=== PATIENT | female | born 1940 | race Caucasian/White ===

== ENCOUNTER 2021-09-11 12:19 | Outpatient (REF) | payer MEDICARE, OTHER, SELFPAY ==
--- NOTE | ~2021-09-11 | MM_ITS ---
EXAMINATION: MM SCREENING DIGITAL BREAST TOMOSYNTHESIS, BILATERAL CLINICAL INFORMATION: Screening. Asymptomatic. The lifetime risk of breast cancer based on the Tyrer-Cuzick Model is 1%. COMPARISON: Outside mammography: 01/06/2016, 10/20/2013, 09/30/2012 ([facility]). TECHNIQUE: Digital breast tomosynthesis is performed in both the craniocaudal and mediolateral oblique views along with computer-aided detection (CAD). Synthesized 2D images are generated from the tomosynthesis. FINDINGS: The breasts are heterogeneously dense, which may obscure small masses (ACR BI-RADS breast composition Category c). There are no significant masses, abnormal calcifications, or other abnormalities. Breast tissue composition borders on average fibroglandular. Parenchymal pattern is similar to prior outside exams. No developing density or architectural abnormality. The axilla and skin contours are unremarkable. No significant changes from outside studies. MM/MM tomosynthesis screening BI IMPRESSION: No mammographic evidence of malignancy. ASSESSMENT: BI-RADS 1: Negative RECOMMENDATION: Routine annual mammography screening. This patient's information was entered into a reminder system with a target due date for their next mammogram.
== END 2021-09-11 12:20 | disposition home or self-care (01) ==
LOC: HO.MAMMO 12:19
PROVIDERS: PCP Internal Medicine; Visit Provider Internal Medicine
DX: Z12.31 Encounter for screening mammogram for malignant neoplasm of breast (principal)
CPT/HCPCS: 77063; 77067

== ENCOUNTER 2021-09-18 07:59 | Day surgery (SDC) | payer MEDICARE, OTHER, SELFPAY ==
[2021-09-12 14:17] VITALS: BMI 23.9
--- NOTE | 2021-09-12 17:11 | HP_ITS ---
DATE OF SERVICE: 09/18/2021 The patient is scheduled for cataract surgery on with Dr. Cornejo. Patient was seen today for preop assessment and previously had a history and physical on August 29 in the office. PAST MEDICAL HISTORY: Significant for hypertension, elevated lipids, diverticulosis, and osteoporosis. She had back surgery in 1981 and basal cell skin cancer removed from her forehead previously. FAMILY HISTORY: Parents are . She had 6 siblings, twins in infancy. One sister is , 3 survived. SOCIAL HISTORY: She is , has 3 children. Quit smoking over 45 years ago. REVIEW OF SYSTEMS: Weight is stable. No fevers or chills or sweats. No headaches or dizziness. No chest pains or palpitations. No peripheral edema. No shortness of breath, coughing, or wheezing. No abdominal pain or heartburn. No dysuria. Some arthritis in her hands. ALLERGIES: SHE DOES HAVE SEASONAL ALLERGIES. SHE LISTS SEVERAL MEDICATION ALLERGIES, WHICH INCLUDE NOVOCAIN, LIDOCAINE, SO SHE CANNOT HAVE LIDOCAINE INJECTION FOR THIS PROCEDURE. SHE IS ALLERGIC TO PENICILLIN, SULFA, DEMEROL, MORPHINE, AND TETANUS. MEDICATIONS: Her present medications are olmesartan 10 mg a day. PHYSICAL EXAMINATION: GENERAL: She is awake and alert, in no distress. VITAL SIGNS: Temperature is 97.8, pulse 91, respirations 12, pressure 136/82, 97% oxygen saturation on room air. Weight is 154, height is 5 feet 4 inches. Well-nourished, in no distress. HEENT: Pupils equal. TMs clear. Pharynx clear. NECK: Supple. No nodes, bruits, or masses. HEART: Sounds S1 and S2. Regular rate and rhythm. LUNGS: Clear. ABDOMEN: Soft and nontender with positive bowel sounds. No HSM. EXTREMITIES: No clubbing, cyanosis, or edema. 1+ pulses. NEUROLOGIC: Cranial nerves II through XII are intact. Hand grasps are equal. ASSESSMENT AND PLAN: She is medically stable for the proposed procedure. I will be available if there are any medical issues. Repeat blood pressure check, 130/80 today. 1. Preop, stable. 2. Hypertension, good control. 3. History of skin cancer, stable. 4. Elevated lipids, followed at home by her local physician. 5. Osteoporosis, on vitamin D. 6. Diverticulosis, not an active problem at this time. MD JEAN-PIERRE Arias/DOLLY / [phone]
--- NOTE | 2021-09-14 08:09 | MHC.SHP ---
Pre-Procedural Eval Section A Date of Service: 09/14/21 The patient is an INPATIENT: No Changes since office visit: No Cold of Flu in the past 2 weeks, No New Medical Problems, No Changes in Medication and No Patient answered all questions The History & Physical has been completed within 30 days and I have reviewed it.: Yes Section B Chief Complaint: Age-related nuclear cataract, left eye Allergies: Allergies Allergy/AdvReac Type Severity Reaction Status Date / Time lidocaine Allergy per H&P Verified 09/13/21 12:55 meperidine [From Demerol] Allergy Unknown Verified 09/13/21 12:50 morphine Allergy Unknown Verified 09/13/21 12:50 Penicillins Allergy Unknown Verified 09/13/21 12:50 procaine [From Novocain] Allergy Throat Verified 09/12/21 14:15 Swelling Sulfa (Sulfonamide Allergy Unknown Verified 09/13/21 12:50 Antibiotics) Tetanus Vaccines and Toxoid Allergy Unknown Verified 09/13/21 12:50 Plan Diagnosis/Plan: Unchanged I have reviewed the history and physical and performed a pertinent physical examination on my patient. No changes have occurred unless specified.
--- NOTE | 2021-09-15 09:30 | HO.ANESPROP2 ---
Documented by User: Gay Flores NP 09/15/21 09:34 HPI - Anesthesia Eval Consult details Narrative: 81yo F for Left Left Cataract Extraction IOL Insertion PCP cleared No previous cataract on record Allergy to procaine (throat swelling). Dr Cornejo and Dr Xie aware PMFSH Past Medical History Medical History (Updated 09/13/21 @ 12:54 by Meg Sousa, RN) Diverticulosis Elevated lipids History of skin cancer HTN (hypertension) Osteoporosis Seasonal allergies Surgical History Surgical History (Updated 09/12/21 @ 14:13 by Meg Sousa, RN) History of lumbar discectomy S/P excision of lipoma Social History Social History Household Members Other:: [employer] Are you a primary morning caregiver to a significant other at home: No Do you presently have visiting nurse or other home services: No Patient Tobacco Use Status: Never used Tobacco Second Hand Smoke Exposure: No Use of substances other than those prescribed or required for medical reasons: No Have you been hit, kicked, punched, or otherwise hurt by someone within the past year? If so, by whom?: No Are you DNR?: No Advance Directives: No Advance Directives Information Provided: Yes Advance Directives on File: No Recently lost weight without trying: No Eating poorly because of decreased appetite: No Nutrition Risks: No Nutritional Risk Patient : No Meds Allergies Allergy/AdvReac Type Severity Reaction Status Date / Time lidocaine Allergy per H&P Verified 09/13/21 12:55 meperidine [From Demerol] Allergy Unknown Verified 09/13/21 12:50 morphine Allergy Unknown Verified 09/13/21 12:50 Penicillins Allergy Unknown Verified 09/13/21 12:50 procaine [From Novocain] Allergy Throat Verified 09/12/21 14:15 Swelling Sulfa (Sulfonamide Allergy Unknown Verified 09/13/21 12:50 Antibiotics) Tetanus Vaccines and Toxoid Allergy Unknown Verified 09/13/21 12:50 Home Medications Medication Instructions Recorded Confirmed Last Taken Type olmesartan 20 mg tablet 10 mg PO DAILY 09/13/21 09/13/21 09/18/21 History Exam Exam Date and Time: September 15, 2021 0930 Height,Weight and Vital Signs: Height 5 ft 7 in Weight 69.4 kg Assessment and Plan Assessment Anesthesia Assessment: Chart Reviewed Documented by User: Barrett Xie MD 09/18/21 09:46 PMFSH Past Medical History Medical History (Updated 09/13/21 @ 12:54 by Meg Sousa RN) Diverticulosis Elevated lipids History of skin cancer HTN (hypertension) Osteoporosis Seasonal allergies Family History Family history of problems with anesthesia: No Surgical History Surgical History (Updated 09/12/21 @ 14:13 by Meg Sousa RN) History of lumbar discectomy S/P excision of lipoma History of Problems with Anesthesia: No Social History Social History Household Members Other:: [employer] Are you a primary morning caregiver to a significant other at home: No Do you presently have visiting nurse or other home services: No Patient Tobacco Use Status: Never used Tobacco Second Hand Smoke Exposure: No Use of substances other than those prescribed or required for medical reasons: No Have you been hit, kicked, punched, or otherwise hurt by someone within the past year? If so, by whom?: No Are you DNR?: No Advance Directives: No Advance Directives Information Provided: Yes Advance Directives on File: No Recently lost weight without trying: No Eating poorly because of decreased appetite: No Nutrition Risks: No Nutritional Risk Patient : No Meds Allergies Allergy/AdvReac Type Severity Reaction Status Date / Time lidocaine Allergy per H&P Verified 09/13/21 12:55 meperidine [From Demerol] Allergy Unknown Verified 09/13/21 12:50 morphine Allergy Unknown Verified 09/13/21 12:50 Penicillins Allergy Unknown Verified 09/13/21 12:50 procaine [From Novocain] Allergy Throat Verified 09/12/21 14:15 Swelling Sulfa (Sulfonamide Allergy Unknown Verified 09/13/21 12:50 Antibiotics) Tetanus Vaccines and Toxoid Allergy Unknown Verified 09/13/21 12:50 Home Medications Medication Instructions Recorded Confirmed Last Taken Type olmesartan 20 mg tablet 10 mg PO DAILY 09/13/21 09/13/21 09/18/21 History Exam Airway Mallampati Class: II TM Dist: >3cm Neck ROM: Full Loose/Missing/Broken Teeth: No Heart: rrr+s1s2 Lungs: cta b/l Assessment and Plan Assessment Anesthesia Assessment: Anesthesia Plan Discussed Final Anesthetic Review Family History of Problems with Anesthesia: No History of Problems with Anesthesia: No NPO: Yes ASA Class: III Final Preanesthetic Review: No Changes in Pt Med Stat, Meds/Allgs Chart Reviewed, Consent Obtained/Reviewed and Anes Risks/Benef Reviewed Patient Risk: Intermediate Procedure Risk: Low Assessment/Block/Sedation in SS: Assess/Block/Sedation-SS Anesthetic Plan Anesthetic Plan: MAC: and Agree w/ Assess. and Plan Disposition: Standard PACU
--- NOTE | 2021-09-18 08:59 | PC.NURSE ---
dr hodge aware pts allergies sts okay to give tetacaine pt has had in the office with no allergies
[2021-09-18 09:16] VITALS: BP 157/65; PULSE 78; RESP 18; TEMP 36.6; O2SAT 97
[2021-09-18] MEDS: Lactated Ringers 500 ML 50 ML IV (09:28)
[2021-09-18] MEDS: Tetracaine HCl/PF 0.5% Oph Sol 4 ML DROPS 1 DROP EYE-LEFT (09:29)
[2021-09-18] MEDS: Tropicamide 1 % Ophth Sol 3 ML BTL 1 DROP EYE-LEFT ×3 (09:29→09:31)
[2021-09-18] MEDS: Phenylephrine HCL 2.5% Oph SoL 2 ML BOTTLE 1 DROP EYE-LEFT ×3 (09:29→09:31)
--- NOTE | 2021-09-18 10:39 | HO.PNOPHT ---
Ophthalmology Procedure Procedure Date of Service: 09/18/21 Ophthalmology Viscoelastic: Healmark Duet Dual Pack Pro Ophthalmology Lenses: TECNIS [id number] (22.5) Procedure Notes: PREOPERATIVE DIAGNOSIS: Decreased visual acuity left eye secondary to cataract POSTOPERATIVE DIAGNOSIS: Same PROCEDURE: Left cataract extraction with intraocular lens insertion SURGEON: Juice Cornejo M.D. ANESTHESIA: Topical/MAC ESTIMATED BLOOD LOSS: None COMPLICATIONS: None After obtaining informed consent, the patient was brought to the operation room suite and placed in the supine position. After adequate sedation per anesthesia, topical drops of Tetracaine were given to the left eye. The eye was then prepped and draped in the usual sterile fashion. The operating room microscope was then positioned over the operative eye and a lid speculum placed. A paracentesis was created. Viscoelastic was then instilled into the anterior chamber. A three plane incision was then created temporally, utilizing a 2.85 mm keratome. Capsulotomy forceps were then utilized to create a circular tear capsulotomy. Hydrodissection and hydrodelineation were carried out until adequate mobilization of the nucleus occurred. Phacoemulsification was then utilized to remove the dense central nucleus followed by removal of the cortical material utilizing the automated aspiration irrigation unit. Viscoat elastic was instilled into the posterior capsular bag followed by placement of a posterior chamber intraocular lens without difficulty. The residual Viscoat elastic was then removed utilizing the automated IA machine. The wound was check and found to be watertight. The patient tolerated the procedure well and the lid speculum was removed. Intracameral injection of Vigamox 0.1 mL followed by a subtenon injection of Kenalog-40 0.2 mL were administered. The patient will be seen in the a.m.
[2021-09-18 11:01] VITALS: BP 171/85; PULSE 73; RESP 16; TEMP 37.1; O2SAT 96
== END 2021-09-18 11:26 | disposition home or self-care (01) ==
PROVIDERS: PCP Internal Medicine; Visit Provider Ophthalmology
PROC: (CPT 66985; principal; 2021-09-18 10:50)
DX: H25.12 Age-related nuclear cataract, left eye (principal); H35.3111 Nonexudative age-related macular degeneration, right eye, early dry stage; I10 Essential (primary) hypertension; Z79.899 Other long term (current) drug therapy; Z88.0 Allergy status to penicillin; Z88.2 Allergy status to sulfonamides; Z88.8 Allergy status to other drugs, medicaments and biological substances; Z87.891 Personal history of nicotine dependence
CPT/HCPCS: 66984; J2250; J3010; J3300; V2632

== ENCOUNTER 2021-09-22 14:24 | Outpatient (REF) | payer MEDICARE, OTHER, SELFPAY ==
--- NOTE | ~2021-09-22 | CT_ITS ---
EXAMINATION: CT HEAD WITHOUT CONTRAST CLINICAL INFORMATION: Facial numbness, hypertension and fatigue COMPARISON: None TECHNIQUE: Contiguous axial imaging was performed from the skull base to vertex without intravenous administration of contrast. This CT examination was performed using dose optimization techniques as appropriate, variously including the following: *Automated exposure control *Adjustment of mA and/or kV according to patient size (this includes techniques or standardized protocols for targeted exams where dose is matched to indication/reason for exam; i.e. extremities or head) *Use of iterative reconstruction technique DLP: 610 mGy-cm FINDINGS: There is no evidence of an extra-axial collection. There is no evidence of intra-axial or extra-axial hemorrhage. The ventricles and extra-axial CSF spaces are slightly prominent suggestive of mild generalized atrophy. There is mild nonspecific periventricular white matter disease. There is a left basial ganglia lacunar infarct. No mass or mass effect is seen. Review at bone windows is normal. Visualized paranasal sinuses, mastoid air cells and middle ears are clear. CT/CT head/brain wo con IMPRESSION: Left basal ganglia lacunar infarct. Mild generalized atrophy and nonspecific periventricular white matter disease.
== END 2021-09-22 14:25 | disposition home or self-care (01) ==
LOC: HO.CT 14:24
PROVIDERS: PCP Internal Medicine; Referring Provider Ophthalmology; Visit Provider Internal Medicine
DX: R29.810 Facial weakness (principal); R53.83 Other fatigue
CPT/HCPCS: 70450

== ENCOUNTER 2021-10-02 09:37 | Day surgery (SDC) | payer MEDICARE, OTHER, SELFPAY ==
[2021-09-12 14:21] VITALS: BMI 23.9
--- NOTE | 2021-09-28 08:41 | MHC.SHP ---
Pre-Procedural Eval Section A Date of Service: 09/28/21 The patient is an INPATIENT: No Changes since office visit: No Cold of Flu in the past 2 weeks, No New Medical Problems, No Changes in Medication and No Patient answered all questions The History & Physical has been completed within 30 days and I have reviewed it.: Yes Section B Chief Complaint: Age-related nuclear cataract, right eye Allergies: Allergies Allergy/AdvReac Type Severity Reaction Status Date / Time lidocaine Allergy per H&P Verified 09/13/21 12:55 meperidine [From Demerol] Allergy Unknown Verified 09/13/21 12:50 morphine Allergy Unknown Verified 09/13/21 12:50 Penicillins Allergy Unknown Verified 09/13/21 12:50 procaine [From Novocain] Allergy Throat Verified 09/12/21 14:15 Swelling Sulfa (Sulfonamide Allergy Unknown Verified 09/13/21 12:50 Antibiotics) Tetanus Vaccines and Toxoid Allergy Unknown Verified 09/13/21 12:50 Plan Diagnosis/Plan: Unchanged I have reviewed the history and physical and performed a pertinent physical examination on my patient. No changes have occurred unless specified.
--- NOTE | 2021-09-28 11:55 | P.CONAN_ITS ---
Documented by User: Gay Flores NP 09/28/21 11:56 HPI - Anesthesia Eval Consult details Narrative: 81yo F for Right Cataract Extraction IOL Insertion PCP cleared Left eye 09/19/21 with MAC: Midaz 0.5 PMFSH Past Medical History Medical History (Updated 09/13/21 @ 12:54 by Meg Sousa, RN) Diverticulosis Elevated lipids History of skin cancer HTN (hypertension) Osteoporosis Seasonal allergies Family History Family history of problems with anesthesia: No Surgical History Surgical History (Updated 09/12/21 @ 14:13 by Meg Sousa RN) History of lumbar discectomy S/P excision of lipoma History of Problems with Anesthesia: No Social History Social History Household Members Other:: [employer] Are you a primary healthcare network consultant to a significant other at home: No Do you presently have visiting nurse or other home services: No Patient Tobacco Use Status: Never used Tobacco Second Hand Smoke Exposure: No Meds Allergies Allergy/AdvReac Type Severity Reaction Status Date / Time lidocaine Allergy per H&P Verified 09/13/21 12:55 meperidine [From Demerol] Allergy Unknown Verified 09/13/21 12:50 morphine Allergy Unknown Verified 09/13/21 12:50 Penicillins Allergy Unknown Verified 09/13/21 12:50 procaine [From Novocain] Allergy Throat Verified 09/12/21 14:15 Swelling Sulfa (Sulfonamide Allergy Unknown Verified 09/13/21 12:50 Antibiotics) Tetanus Vaccines and Toxoid Allergy Unknown Verified 09/13/21 12:50 Home Medications Medication Instructions Recorded Confirmed Last Taken Type olmesartan 20 mg tablet 10 mg PO DAILY 09/13/21 09/13/21 09/18/21 History Exam Exam Date and Time: September 28, 2021 1155 Height,Weight and Vital Signs: Height 5 ft 7 in Weight 69.4 kg Assessment and Plan Assessment Anesthesia Assessment: Chart Reviewed Final Anesthetic Review Family History of Problems with Anesthesia: No History of Problems with Anesthesia: No Documented by User: Barrett Xie MD 10/02/21 08:31 [facility] Past Medical History Medical History (Updated 09/13/21 @ 12:54 by Meg Sousa, RN) Diverticulosis Elevated lipids History of skin cancer HTN (hypertension) Osteoporosis Seasonal allergies Surgical History Surgical History (Updated 09/12/21 @ 14:13 by Meg Sousa, RN) History of lumbar discectomy S/P excision of lipoma Social History Social History Household Members Other:: [employer] Are you a primary healthcare network consultant to a significant other at home: No Do you presently have visiting nurse or other home services: No Patient Tobacco Use Status: Never used Tobacco Second Hand Smoke Exposure: No Meds Allergies Allergy/AdvReac Type Severity Reaction Status Date / Time lidocaine Allergy per H&P Verified 09/13/21 12:55 meperidine [From Demerol] Allergy Unknown Verified 09/13/21 12:50 morphine Allergy Unknown Verified 09/13/21 12:50 Penicillins Allergy Unknown Verified 09/13/21 12:50 procaine [From Novocain] Allergy Throat Verified 09/12/21 14:15 Swelling Sulfa (Sulfonamide Allergy Unknown Verified 09/13/21 12:50 Antibiotics) Tetanus Vaccines and Toxoid Allergy Unknown Verified 09/13/21 12:50 Home Medications Medication Instructions Recorded Confirmed Last Taken Type olmesartan 20 mg tablet 10 mg PO DAILY 09/13/21 09/13/21 09/18/21 History Exam Airway Mallampati Class: II TM Dist: >3cm Neck ROM: Full Loose/Missing/Broken Teeth: No Heart: rrr+s1s2 Lungs: cta b/l Assessment and Plan Assessment Anesthesia Assessment: Anesthesia Plan Discussed Final Anesthetic Review NPO: Yes ASA Class: III Final Preanesthetic Review: No Changes in Pt Med Stat, Meds/Allgs Chart Rev iewed, Consent Obtained/Reviewed and Anes Risks/Benef Reviewed Patient Risk: Intermediate Procedure Risk: Low Assessment/Block/Sedation in SS: Assess/Block/Sedation-SS Anesthetic Plan Anesthetic Plan: MAC: and Agree w/ Assess. and Plan Disposition: Standard PACU
[2021-10-02 11:30] VITALS: BP 169/84; PULSE 69; RESP 16; TEMP 36.8; O2SAT 99
[2021-10-02] MEDS: Tetracaine HCl/PF 0.5% Oph Sol 4 ML DROPS 1 DROP EYE-RIGHT ×2 (11:36→11:54)
[2021-10-02] MEDS: Lactated Ringers 500 ML 50 ML IV (11:36)
[2021-10-02] MEDS: Tropicamide 1 % Ophth Sol 3 ML BTL 1 DROP EYE-RIGHT ×3 (11:41→11:54)
[2021-10-02] MEDS: Phenylephrine HCL 2.5% Oph SoL 2 ML BOTTLE 1 DROP EYE-RIGHT ×3 (11:50→11:57)
--- NOTE | 2021-10-02 12:37 | HO.PNOPHT ---
Ophthalmology Procedure Procedure Date of Service: 10/02/21 Ophthalmology Viscoelastic: Heal[employer] Duet Dual Pack Pro Ophthalmology Lenses: TECNIS [id number] (23.5) Procedure Notes: PREOPERATIVE DIAGNOSIS: Decreased visual acuity right eye secondary to cataract POSTOPERATIVE DIAGNOSIS: Same PROCEDURE: Right cataract extraction with intraocular lens insertion SURGEON: Juice Cornejo M.D. ANESTHESIA: Topical/MAC ESTIMATED BLOOD LOSS: None COMPLICATIONS: None After obtaining informed consent, the patient was brought to the operating room suite and placed in the supine position. After adequate sedation per anesthesia, topical drops of Tetracaine were given to the right eye. The eye was then prepped and draped in the usual sterile fashion. The operating room microscope was then positioned over the operative eye and a lid speculum placed. A paracentesis was created. Viscoelastic was then instilled into the anterior chamber. A three plane incision was then created temporally, utilizing a 2.85 mm keratome. Capsulotomy forceps were then utilized to create a circular tear capsulotomy. Hydrodissection and hydrodelineation were carried out until adequate mobilization of the nucleus occurred. Phacoemulsification was then utilized to remove the dense central nucleus followed by removal of the cortical material utilizing the automated aspiration irrigation unit. Viscoelastic was instilled into the posterior capsular bag followed by placement of a posterior chamber intraocular lens without difficulty. The residual Viscoelastic was then removed utilizing the automated IA machine. The wound was checked and found to be watertight. The patient tolerated the procedure well and the lid speculum was removed. Intracameral injection of Vigamox 0.1 mL followed by a subtenon injection of Kenalog-40 0.2 mL were administered. The patient will be seen in the a.m.
[2021-10-02 13:04] VITALS: BP 171/89; PULSE 70; RESP 18; TEMP 36.2; O2SAT 98
== END 2021-10-02 13:20 | disposition home or self-care (01) ==
PROVIDERS: PCP Internal Medicine; Visit Provider Ophthalmology
PROC: (CPT 66985; principal; 2021-10-02 13:00)
DX: H25.11 Age-related nuclear cataract, right eye (principal); H35.3111 Nonexudative age-related macular degeneration, right eye, early dry stage; I10 Essential (primary) hypertension; E78.5 Hyperlipidemia, unspecified; J30.2 Other seasonal allergic rhinitis; M81.0 Age-related osteoporosis without current pathological fracture; Z79.899 Other long term (current) drug therapy; Z85.828 Personal history of other malignant neoplasm of skin; Z87.891 Personal history of nicotine dependence; Z88.0 Allergy status to penicillin; Z88.2 Allergy status to sulfonamides; Z88.8 Allergy status to other drugs, medicaments and biological substances; Z88.7 Allergy status to serum and vaccine
CPT/HCPCS: 66984; J2250; J3300; V2632